=== PATIENT | female | born 1990 | race Caucasian/White ===

== ENCOUNTER 2022-04-19 08:04 | Outpatient (CLI) | payer SELFPAY ==
--- NOTE | ~2022-04-19 | US_ITS ---
EXAMINATION: US pelvic complete w TV DATE: 04/19/2022 08:42 INDICATION: Left lower quadrant pain, missing IUD strings TECHNIQUE: Multiple transabdominal and endovaginal sonographic images of the pelvis were obtained. COMPARISON: 07/23/2018 FINDINGS: The uterus measures 7.7 x 3.7 x 5.5 cm. The endometrial complex measures 6 mm. An IUD appea rs to be present in expected position. The right ovary measures 2.7 x 1.6 x 1.5 cm. The left ovary me asures 2.1 x 2.2 x 1.4 cm. There is normal vascular flow in the ovaries. There is no free fluid in th e pelvis. IMPRESSION: 1. IUD in expected position. Reviewed, dictated and finalized at location B.
== END 2022-04-19 08:05 ==
PROVIDERS: PCP Family Medicine; Visit Provider Family Medicine
DX: R10.2 Pelvic and perineal pain (principal); Z97.5 Presence of (intrauterine) contraceptive device
CPT/HCPCS: 76830; 76856